=== PATIENT | male | born 1975 | race Caucasian/White ===

== ENCOUNTER 2019-08-25 06:20 | Inpatient (IN) ==
[2019-08-25] MEDS ORDERED: NS 1,000 ML IV ONE (06:25)
[2019-08-25] MEDS ORDERED: XYLOCAINE 2% JELLY UROJECT TOP ONE (06:38)
[2019-08-25 06:41] LABS: BASO# 0.01 X1000 (0.0-0.2); BASO% 0.1 % (0.0-0.8); EOS# 0.02 X1000 (0.0-0.7); EOS% 0.1 % (0.0-10.0); HEMATOCRIT 47.9 % (42.0-52.0); IMM GRAN# 0.04 X1000 (0.0-0.04); IMM GRAN% 0.3 % (0.0-0.5); LYMPH# 0.69 X1000 (1.2-3.4); LYMPH% 4.6 % (20.5-51.1); MCH 30.3 PG (27-31); MCHC 33.4 g/dL (33-37); MCV 90.7 FL (81-99); MONO# 1.29 X1000 (0.11-0.59); MONO% 8.6 % (1.7-9.3); MPV 11.8 FL (7.4-10.4); NEUT# 12.98 X1000 (1.4-6.5); NEUT% 86.3 % (42.2-75.2); PLT 184 X1000 (130-400); RBC 5.28 XMIL (4.7-6.1); RDW 15.3 % (11.5-14.5); WBC 15.03 X1000 (4.8-10.8)
--- NOTE | 2019-08-25 06:42 | PROVIDER DOCUMENTATION ---
HPI-Male Problem - General Chief Complaint: Male Stated Complaint: Abd pain Time Seen by Provider: 08/25/19 07:00 Source: patient (Patient is a 44 year old white male , S/P penile surgery at [facility] 3-4 weeks ago requiring chronic abreu catheter. Patient now presents [facility] with urinary retention and painful lower abdominal distention since last night. Urologist compensation supervisor contacted, Dr. Lopez, who recommends replacing abreu catheter if unable to unblock current abreu catheter. Review of medical record reveals that patient had prolonged priapism for over 3 days that necessitated surgery.) Allergies/Adverse Reactions: Patient Allergies Allergy/AdvReac Type Severity Reaction Status Date / Time No Known Allergies Allergy Verified 08/25/19 06:38 Home Medications: Home Medication List Medication Instructions Recorded Confirmed Last Taken Type Amantadine [Symmetrel] 100 mg PO BID 07/21/19 08/25/19 08/20/19 History Escitalopram [Lexapro] 1 tab PO DAILY 07/21/19 08/25/19 08/20/19 History Lisinopril 1 tab PO DAILY 07/21/19 08/25/19 08/20/19 History Tamsulosin [Flomax] 0.4 mg PO DAILY #7 cap 07/21/19 08/25/19 Unknown Rx Review of Systems - Adult - REVIEW OF SYSTEMS - ADULT Constitutional: reports: no symptoms reported Eyes: reports: no symptoms reported Ears, Nose, Mouth & Throat: reports: no symptoms reported Cardiovascular: reports: no symptoms reported Respiratory: reports: no symptoms reported Gastrointestinal: reports: no symptoms reported Genitourinary: reports: no symptoms reported Musculoskeletal: reports: no symptoms reported Integumentary: reports: no symptoms reported Neurological: reports: no symptoms reported Psychiatric: reports: no symptoms reported Endocrine: reports: no symptoms reported Hematologic/Lymphatic: reports: no symptoms reported Allergic/Immunologic: reports: no symptoms reported All Other Systems: Reviewed and Negative Past History - Adult - PAST MEDICAL HISTORY-ADULT Review of Records: reports: Old Records Reviewed, Nursing Assessment Review, Medications Reviewed, Social history reviewed & non-contributory. Major Childhood Illnesses: reports: denies history Cardiovascular: reports: denies history Respiratory: reports: denies history Gastrointestinal: reports: denies history Obstetrical/Gynecological: reports: denies history Genitourinary: reports: denies history Musculoskeletal: reports: denies history Neurological: reports: denies history Endocrine/Immune: reports: denies history Other Conditions: reports: denies history Physical Exam-General - CONSTITUTIONAL General Appearance: alert, other (in pain) - EYES Eyes: other (clear) - HEAD, EARS, NOSE, MOUTH & THROAT HENMT: other (clear) - NECK Neck: supple - RESPIRATORY Respiratory: lungs clear - CARDIOVASCULAR Cardiovascular: tachycardia (in pain) - GASTROINTESTINAL (ABDOMEN) Abdominal Exam: distended, tenderness (lower abdomen tenderness) - MUSCULOSKELETAL Back Exam: normal inspection, no CVA tenderness Extremity: non-tender Progress - PLAN OF CARE/RESULTS Progress/Plan/Lab Results: Vital Signs - 8 hr 08/25/19 06:15 Temperature 98.8 F Pulse Rate 116 H Respiratory Rate 18 Blood Pressure 131/96 O2 Sat by Pulse Oximetry 98 Laboratory Results - last 24 hr 08/25/19 06:23 WBC 15.03 H RBC 5.28 Hgb 16.0 Hct 47.9 MCV 90.7 MCH 30.3 MCHC 33.4 RDW Std Deviation 15.3 H Plt Count 184 MPV 11.8 H Immature Gran % (Auto) 0.3 Neut % (Auto) 86.3 H Lymph % (Auto) 4.6 L Creek % (Auto) 8.6 Eos % (Auto) 0.1 Baso % (Auto) 0.1 Immature Gran # (Auto) 0.04 Neut # (Auto) 12.98 H Lymph # (Auto) 0.69 L Creek # (Auto) 1.29 H Eos # (Auto) 0.02 Baso # (Auto) 0.01 Orders Category Date Time Status [facility] Communication Order DIRECTED Care 08/25/19 06:22 Active NEWS Score 2-4:Order NEWS Lactate Series NOW Care 08/25/19 06:25 Active Saline Loc DIRECTED Care 08/25/19 06:23 Active NPO Diet 08/25/19 06:23 Active BLOOD CULTURE [BLDCUL] Stat Lab 08/25/19 06:39 Ordered CBC WITH ELECTRONIC DIFF [HEME] Stat Lab 08/25/19 06:23 Results COMPREHENSIVE METABOLIC PANEL [CHEM] Stat Lab 08/25/19 06:33 Ordered LACTATE, PLASMA [CHEM] Q3H Lab 08/25/19 06:33 Ordered LACTATE, PLASMA [CHEM] Q3H Lab 08/25/19 09:30 Uncollected LACTATE, PLASMA [CHEM] Q3H Lab 08/25/19 12:30 Uncollected LIPASE [CHEM] Stat Lab 08/25/19 06:33 Ordered URINALYSIS W/POSS RFLX CULT [URINALYSIS] Stat Lab 08/25/19 06:23 Uncollected 0.9% Sodium Chloride Inj [Ns] 1,000 ml Med 08/25/19 06:25 Active IV 999 mls/hr Lidocaine 2% Jelly Appl [Xylocaine 2% Jelly Uroject] Med 08/25/19 06:38 Once See Dose Instructions TOP NOW ONE Result Diagrams: 08/25/19 06:23 08/25/19 06:25 - CONSULTS/PCP/HOSPITALIST Notification #1 *Consult/PCP/Hospitalist*: Dr. Lopez, urologist compensation supervisor Time Discussed: 06:30 #2 Consult: DR LOPEZ Time Discussed: 08:00 (will need admission , can consult) #3 Consult: dr DIXON Time Discussed: 09:11 Consult Disposition: Admit - CHANGE OF SHIFT REPORT (ED Provider) 1 Report Given and Care Transferred to:: Dr. Mike Vance Time of Transfer: 07:00 Items Pending: Labs Departure - Departure Date of Disposition Decision: 08/25/19 Time of Disposition Decision: 09:09 DIAGNOSIS: Acute urinary retention, UTI (urinary tract infection), Pyuria, Multiple sclerosis Abreu catheter problem Qualifiers: Encounter type: initial encounter Qualified Code(s): T83.9XXA - Unspecified complication of genitourinary prosthetic device, implant and graft, initial encounter Disposition: ADMITTED INPATIENT 09 Certified Medical Emergency: Emergent Condition: Stable - Critical Care Note This patient required my direct & personal management of CC.: No Attestation - Physician/ [place] Attestation The physician spent face to face time with patient:: Yes Advanced Practice Provider documentation review:: Supervising physician onsite and consulted in the evaluation and care of this patient. The physician did have a face to face encounter with the patient.
[2019-08-25 07:14] LABS: URINE SOURCE CATH
[2019-08-25 07:30] LABS: URINE RBC TNTC /HPF (<10)
[2019-08-25 07:31] LABS: URINE CAST NONE SEEN /LPF; URINE CRYSTAL TRIPLE PHOS PRESENT /HPF; URINE EPITHELIAL CELLS <10 /HPF (<10); URINE YEAST NONE SEEN /HPF
[2019-08-25 07:33] LABS: BILIRUBIN URINE NEGATIVE (NEGATIVE); BLOOD URINE LARGE (NEGATIVE); COLOR RED; GLUCOSE URINE NEGATIVE (NEGATIVE); KETONE URINE NEGATIVE (NEGATIVE); SP GRAVITY URINE 1.015; URINE SMALL ROUND CELLS TRANSITIONAL PRESENT
[2019-08-25 07:34] LABS: LEUKOCYTES URINE LARGE (NEGATIVE); NITRITE URINE NEGATIVE (NEGATIVE); PROTEIN URINE 100 mg/dL (NEGATIVE); UROBILINOGEN URINE 0.2 EU/dL (0.2-1.0)
[2019-08-25 07:35] LABS: URINE BACTERIA 4+ /HFP
[2019-08-25 07:36] LABS: CLARITY GROSS BLOOD (CLEAR); URINE WBC TNTC /HPF (<10)
[2019-08-25 07:47] LABS: ALBUMIN 3.6 g/dL (3.5-5.0); CALCIUM 9.3 mg/dL (8.8-10.2); CREATININE 6.5 mg/dL (0.7-1.2); POTASSIUM 4.2 mmol/L (3.5-5.1); TOTAL BILIRUBIN 0.9 mg/dL (0.20-1.00); TOTAL PROTEIN 7.1 g/dL (6.3-8.3)
[2019-08-25] MEDS ORDERED: ROCEPHIN 1 GM in NS 50 ML IV ONE (08:04)
--- NOTE | 2019-08-25 08:58 | HISTORY AND PHYSICAL ---
PRIMARY CARE PHYSICIAN: None. NEUROLOGIST: Dr. Dye. CHIEF COMPLAINT: Urinary retention and lower abdominal painful distention with indwelling Ramsay catheter. HISTORY OF PRESENTING ILLNESS: This is a 44-year-old, male, who presents to [facility] ER with complaints of urinary retention and a painful lower abdomen distention over the past several days. States that he is status post penile surgery at [facility] about 3 to 4 weeks ago, requiring a chronic Ramsay catheter. He has had [id number] urinary output in his urinary catheter. ER physician spoke with Dr. Lopez, on-call for Urology, who recommended replacing the Ramsay catheter. The staff was able to replace that, and he had immediate return of pardo-colored urine. Workup did show a white blood cell count of 15.03. Urinalysis showed large white blood cells, 4+ bacteria. He also was noted to have a BUN of 66, with a creatinine of 6.5. It is noted on 07/29/2019 that his creatinine was 0.7, so he will be admitted to [facility] for further evaluation and treatment. PAST MEDICAL HISTORY: Multiple sclerosis. PAST SURGICAL HISTORY: Penile surgery for prolonged priapism. FAMILY HISTORY: Reviewed and noncontributory. SOCIAL HISTORY: He currently does not smoke. No alcohol or illicit drug use. ALLERGIES: He has no known drug allergies. HOME MEDICATIONS: Will obtain a current list, reconcile, review, and restart as appropriate. LABORATORY DATA: White blood cell count of 15.03, hemoglobin 16, hematocrit 47.9, platelets 184,000. Sodium 140, potassium 4.2, chloride 100, CO2 of 20, BUN of 66, creatinine 6.5, glucose 125. Plasma lactate of 1.7. Urinalysis showed gross blood, large white blood cells, 4+ bacteria. REVIEW OF SYSTEMS: He denied any fever, chills, blurred vision, dizziness, chest pain, coughing, shortness of breath. He had lower abdominal distention with pain and urinary retention with minimal output into his indwelling Ramsay catheter. Denied any nausea, vomiting, constipation, diarrhea. PHYSICAL EXAMINATION: VITAL SIGNS: On arrival, he had a temperature of 98.8 degrees, pulse 116, respirations 18, blood pressure 131/96, saturating 98% on room air. GENERAL: This is a 44-year-old, male, lying in the bed, answers questions appropriately. HEENT: Normocephalic, atraumatic. Normal ENT inspection. Oropharynx and nares are clear. Eyes: Pupils are equal, round, and reactive to light and accommodation. Extraocular movements are intact. NECK: Normal inspection. Normal range of motion. LUNGS: Clear to auscultation bilaterally with equal lung expansion and chest wall movement. HEART: Regular rate and rhythm. No murmurs, rubs, or gallops. ABDOMEN: Soft. There is some tenderness to the suprapubic area of his abdomen, but that has improved since changing out his Ramsay catheter. Bowel sounds are present x4 quadrants. GENITOURINARY: He has an indwelling Ramsay catheter, draining a pardo-colored urine at this time. MUSCULOSKELETAL: Normal inspection. NEUROLOGICAL: The cranial nerves II through XII appear grossly intact. ASSESSMENT: 1. Postobstructive uropathy with indwelling Ramsay catheter. 2. Acute kidney injury. 3. Urinary tract infection. 4. Leukocytosis. 5. Multiple sclerosis. PLAN: He will be transferred to the [facility]. Consult Urology. Place on a regular diet. Rocephin 1 gram IV every 24 hours. Normal saline at 125 mL an hour. Urine culture is pending. Blood culture is pending. Will continue his home medications once identified as appropriate, and further orders after seen by attending and by technical assistance consultant. Dictated by DANIELLE Sy for Neri Gonzalez MD cc: DANIELLE Sy MD
--- NOTE | 2019-08-25 10:10 | HISTORY AND PHYSICAL ---
ADDENDUM: Patient was seen and examined by myself. Full note dictated and discussed with nurse practitioner. Patient is a 44-year-old male who has a known history of multiple sclerosis. He just recently had surgery at [facility] 3 to 4 days ago secondary to chronic Ramsay catheter. He presented to the hospital with leukocytosis at 15. Urine is abnormal but certainly may be a contaminant. We are going to start him on antibiotics and transfer him to [facility] for urology input. cc: Neri Gonzalez MD
[2019-08-25] MEDS: SYMMETREL PO SCH ×2 (10:14→21:53)
[2019-08-25] MEDS ORDERED: ZOFRAN IV PRN (10:14)
[2019-08-25] MEDS ORDERED: TYLENOL PO PRN (10:14)
[2019-08-25] MEDS: NS 1,000 ML IV SCH ×2 (10:53→21:40)
[2019-08-25] MEDS: LEXAPRO PO SCH (10:53)
[2019-08-25] MEDS: FLOMAX PO SCH (10:53)
--- NOTE | 2019-08-25 12:48 | HISTORY AND PHYSICAL ---
ADDENDUM: Patient was seen and examined by myself. Full note dictated and discussed with nurse practitioner. The patient currently is awake and alert. He is in no respiratory distress but obviously ill-appearing. I am going to admit him to the hospital. He has had his Ramsay replaced. I am transferring him to [facility] for urology's input and we will follow. Please see full note. cc: Neri Gonzalez MD
--- NOTE | 2019-08-25 16:24 | Diag Imaging Result Doc PS360 ---
EXAM: US RENAL 2 (RETROPER) COMPLETE - 08/25/2019 HISTORY: jean pierre/arf/urinary retention TECHNIQUE: Bilateral renal ultrasound COMPARISON: None. FINDINGS: The right kidney measures 12.6 x 4.8 x 5.5 cm in size. The left kidney measures 12 x 5.4 x 6.2 cm in size. There is no renal mass, stone, or hydronephrosis. The urinary bladder is largely decompressed by Ramsay catheter. There is no discrete urinary bladder lesion identified. IMPRESSION: No visible renal abnormality. No hydronephrosis. Electronically signed by Celestino Lunsford 08/25/2019 4:22 PM
[2019-08-25] MEDS: KLONOPIN PO SCH (16:34)
[2019-08-25] MEDS: NORCO-10 PO PRN (16:34)
--- NOTE | 2019-08-25 17:09 | PROGRESS NOTE ---
DATE: 08/25/2019 44-year-old followed by Dr. Dye. Urinary retention, lower abdominal pain, full distention, indwelling Ramsay catheter. A 44-year-old male came to [facility] complain of urinary retention, painful lower abdomen distention over the last several days and he is status post penile surgery in [place] 3 or 4 weeks ago requiring chronic Ramsay catheter. He had little to no urinary output. ER physician spoke to Dr. Lopez guidance consultant for Urology recommended replacing Ramsay catheter and staff was able to replace that and he had immediate return of pardo colored urine. Workup showed white blood cell count of 15,030, urinalysis showed white blood cells, large number white blood cells, 4+ bacteria. Also noted to have a BUN of 66, creatinine 6.5 noted on 08/18/2019, creatinine 0.7 so admitted to the hospital, started on some IV fluids. Acute kidney injury, urinary tract infection, post obstructive uropathy with indwelling Ramsay catheter, leukocytosis, underlying multiple sclerosis. Have reviewed the orders. Patient on amantadine 100 mg p.o. b.i.d., Klonopin 0.5 mg t.i.d., Lexapro 10 mg daily, normal saline at 125 mL an hour, ceftriaxone 1 g IV q.24 hours, Flomax 0.4 mg a day. REVIEW OF LABS: White count 15,030, hematocrit is 47, platelet count 184,000. Sodium 140, potassium 4.2, chloride 100, BUN 66, creatinine 6.5, calcium 9.3. cc: Mehul Stahl MD
[2019-08-26] MEDS: NS 1,000 ML IV SCH ×3 (06:16→20:04)
[2019-08-26 07:11] LABS: AGAP 10; BUN 21 mg/dL (8-22); CALCIUM 8.5 mg/dL (8.8-10.2); CHLORIDE 111 mmol/L (98-107); COSMO 291; ESTIMATED GFR > 60; GLUCOSE 94 mg/dL (70-104); POTASSIUM 3.9 mmol/L (3.5-5.1); SODIUM 145 mmol/L (136-145); TCO2 24 mmol/L (25-35)
[2019-08-26 07:37] LABS: BASO# 0.01 X1000 (0.0-0.2); BASO% 0.2 % (0.0-0.8); EOS# 0.18 X1000 (0.0-0.7); EOS% 3.2 % (0.0-10.0); HEMATOCRIT 40.3 % (42.0-52.0); HEMOGLOBIN 13.1 g/dL (14.0-18.0); LYMPH# 0.64 X1000 (1.2-3.4); LYMPH% 11.4 % (20.5-51.1); MCH 30.5 PG (27-31); MCHC 32.5 g/dL (33-37); MCV 93.9 FL (81-99); MONO# 0.57 X1000 (0.11-0.59); MONO% 10.1 % (1.7-9.3); MPV 11.6 FL (7.4-10.4); NEUT# 4.22 X1000 (1.4-6.5); NEUT% 75.1 % (42.2-75.2); PLT 158 X1000 (130-400); RBC 4.29 XMIL (4.7-6.1); RDW 15.1 % (11.5-14.5); WBC 5.62 X1000 (4.8-10.8)
[2019-08-26 07:41] LABS: URINE SOURCE CATH
--- NOTE | 2019-08-26 08:04 | CONSULTATION ---
DATE OF CONSULTATION: 08/26/2019 CHIEF COMPLAINT: Urinary retention and nonfunctional Ramsay catheter. HISTORY OF PRESENT ILLNESS: Mr. Prajapati is a 44-year-old who presented to the emergency room yesterday complaining of urinary retention and painful suprapubic distention. The patient has had an indwelling catheter in for over a month now due to retention. The patient has been to the emergency room on 4 separate occasions regarding his catheter, most recently on 08/21/2019. The patient states that he initially had a catheter placed in June and then re- presented when he had a priapism for 7 days. Due to issues with the hospital being on diversion, he was transferred to [place] and underwent drainage of priapism in [place]. The patient does not remember the doctor's name. The patient continues to have indwelling catheter in since then. The patient's catheter was clogged, and he presented to the emergency room yesterday. The ER tried to flush his catheter and were unsuccessful and removed the catheter and reinserted with a new catheter, which drained out over 1500 mL of slightly bloody and thickened urine that had 4+ bacteria present. The patient had a white blood cell count elevated at 15, with a creatinine of 6.5. The patient was admitted to the hospital, as his previous creatinines were around 0.7. This morning, patient denies any dysuria or pelvic pain. He feels like the catheter is draining well and feels like he is back to his normal state of health. PAST MEDICAL HISTORY: 1. Multiple sclerosis. 2. Hypertension. PAST SURGICAL HISTORY: Penile surgery for prolonged priapism. ALLERGIES: No known drug allergies. HOME MEDICATIONS: 1. Amantadine 100 mg b.i.d. 2. Klonopin 0.5 mg t.i.d. 3. Lexapro 1 tablet p.o. daily. 4. Brayton 10/325 mg take 1 tablet every 6 hours. 5. Lisinopril 1 tablet p.o. daily. 6. Flomax 0.4 mg p.o. FAMILY HISTORY: Denies family history of malignancy. SOCIAL HISTORY: Denies tobacco, alcohol, illicit drug use. REVIEW OF SYSTEMS: A 12-point review of systems was performed with all pertinent positives and negatives in HPI. PHYSICAL EXAMINATION: Vital Signs: Temperature 98.5 degrees, heart rate 99, blood pressure 132/82, oxygen saturation 100% on room air. General: No acute distress. Resting comfortably in bed. Alert and oriented x3. HEENT: Normocephalic, atraumatic. Pupils equal, round, reactive to light. Slightly poor dentition. Neck: Trachea midline with no obvious masses. Lungs: Clear to auscultation bilaterally. Respiratory: Good respiratory effort without audible wheezing or rales. Cardiovascular: Regular rate and rhythm. Abdomen: Soft, nontender, nondistended. Genitourinary: No suprapubic tenderness. No CVA tenderness. Urethral catheter in place draining slightly pinkish urine. No evidence of any clots or sediment. The patient has normal phallus with orthotopic meatus. The patient has chromic sutures present within the glans at the site of prior shunt with no blood present. Bilateral testicles palpated without asymmetry. Digital rectal exam showed a 25 gram prostate with no nodules or bogginess. Musculoskeletal: Moving all extremities. Neurologic: Gross motor and sensory intact. Skin: No obvious skin lesions or rashes. LABORATORY DATA: The patient's blood work yesterday showed a white blood cell count of 15, hemoglobin 16, hematocrit 47.9, platelets of 184,000. The a.m. CBC is not returned. The patient's sodium today is 145, potassium 3.9, chloride 111, bicarbonate 24, BUN 21, creatinine 1, glucose 94. The patient's creatinine yesterday was 6.5 with a BUN of 66. IMAGING: Renal ultrasound was obtained yesterday which showed no evidence of hydronephrosis, renal mass, nephrolithiasis, or renal cyst. The patient had decompressed bladder with catheter in place with no obvious etiologies within the bladder itself. ASSESSMENT AND PLAN: Mr. Prajapati is a 44-year-old who presents in consultation regarding urinary retention and recent episode of priapism. The patient had his indwelling catheter clogged yesterday and presents to the emergency room. This was exchanged and has drained well since then. He does have some reddish urinary output. The patient 4+ bacteria on his urinalysis. The patient had acute kidney injury yesterday with creatinine 6.5. This improved remarkably to 1 today. He denies any pain. The patient had a recent episode of priapism which was drained at [place]. The patient has failed several voiding trials and presents today with indwelling catheter. Renal ultrasound yesterday showed no evidence of hydronephrosis or renal mass. I recommended consideration for cystoscopy in the future, probably could do this outpatient, to assess for obstruction as well as issues with recurrent retention. I think this may be related to his multiple sclerosis. No obvious enlargement of the prostate is seen on the digital rectal exam. The patient remains on Flomax. We will continue at this time. I would plan to try to perform a voiding trial in the outpatient setting, likely at time of cystoscopy. Would arrange this outpatient. The patient's renal function seems to have improved significantly, could consider discharge depending on culture results. The patient likely had a bacterial infection leading to elevated white blood cell count. The morning's white blood cell numbers have not returned yet. We will continue to monitor from a urologic standpoint. Please call with questions or concerns. cc: Nakul Lopez MD MTDD
[2019-08-26 08:23] LABS: BILIRUBIN URINE NEGATIVE (NEGATIVE); BLOOD URINE LARGE (NEGATIVE); COLOR BROWN; GLUCOSE URINE NEGATIVE (NEGATIVE); KETONE URINE TRACE mg/dL (NEGATIVE); LEUKOCYTES URINE LARGE (NEGATIVE); NITRITE URINE NEGATIVE (NEGATIVE); PROTEIN URINE 100 mg/dL (NEGATIVE); SP GRAVITY URINE 1.015; TURBIDITY URINE TURBID (CLEAR); UROBILINOGEN URINE NORMAL (NORMAL)
[2019-08-26 08:29] LABS: UR EPITHELIAL CELLS <10 /HPF (<10); URINE BACTERIA NEGATIVE /HPF; URINE RBC TNTC /HPF (<10); URINE WBC TNTC /HPF (<10)
[2019-08-26 08:31] LABS: URINE CASTS NONE SEEN; URINE CRYSTALS NONE SEEN; URINE SMALL ROUND CELLS NONE SEEN; URINE YEAST NONE SEEN
[2019-08-26] MEDS: ROCEPHIN 1 GM in NS 50 ML IV SCH (08:39)
[2019-08-26] MEDS: SYMMETREL PO SCH ×2 (08:39→20:00)
[2019-08-26] MEDS: LEXAPRO PO SCH (08:39)
[2019-08-26] MEDS: FLOMAX PO SCH (08:39)
[2019-08-26] MEDS: KLONOPIN PO SCH ×3 (08:46→17:41)
--- NOTE | 2019-08-26 10:14 | PROGRESS NOTE ---
DATE: 08/26/2019 Mr. Prajapati was admitted yesterday, on 08/25/2019. He had a Ramsay replaced. Transferred him to [place] for [facility]. He came with urinary retention, lower abdominal painful distention, indwelling Ramsay catheter. He is a 44-year-old, male. Presented to [facility] with complaints of urinary retention, painful lower abdominal distention over the past several days. States that he is status post penile surgery at [facility] 3 or 4 weeks ago, requiring a chronic Ramsay catheter. He has had little to no urinary output from his urinary catheter. ER physician spoke with Dr. Lopez in a call and recommended to come over here. They were able to replace his catheter and he had immediate return of pardo-colored urine. Workup showed white blood cell count at 15,030, large number of white blood cells in the urine, 4+ bacteria. BUN of 66, creatinine 6.5. It was noted that on 07/29/2019, his creatinine was 0.7. He has underlying multiple sclerosis. He reports that he feels about the same today. PHYSICAL EXAMINATION: Temperature 98.1 degrees, pulse 92, respirations 19, blood pressure 105/59. Pupils are equal and round. Lungs are clear in all lung hamm. Cardiovascular Examination: Regular rhythm and rate without murmur or S3. Urine output is 5000 mL. ASSESSMENT AND PLAN: Presented with urinary retention, recent episode of priapism. The patient has had indwelling catheter clogged and presented to the emergency room. This catheter was changed and has drained well since then. Does have some reddish urinary output. The patient is with 4+ bacteria on urinalysis. The patient had an acute kidney injury. The creatinine was up to 6.5, and removed and improved remarkably in 1 day. He denies any pain. Recent episode of priapism that was drained in [place]. The patient failed several voiding trials and has an indwelling catheter. Renal ultrasound showed no evidence of hydronephrosis or renal mass. I think Dr. Lopez is considering a cystoscopy in the future, which could possibly be done as an outpatient. He has urinary retention, which could be related to his multiple sclerosis. No obvious enlargement of the prostate seen on digital exam. The patient remains on Flomax. Could plan to try a voiding trial. Plan a voiding trial as an outpatient setting, likely at the time of cystoscopy. Arrange this as an outpatient. We will begin some physical therapy. REVIEW OF ORDERS: He is on Symmetrel 100 mg p.o. b.i.d., Klonopin 0.5 mg t.i.d., Lexapro 10 mg a day, getting normal saline at 125 mL an hour, ceftriaxone 1 g IV q.24 hours, Flomax 0.4 mg daily. We are waiting on cultures. He had blood cultures and urine culture, which were done yesterday. We will get physical therapy involved and see. He is on a regular diet. cc: Mehul Stahl MD
[2019-08-26] MEDS: LACTULOSE PO SCH ×2 (12:57→20:01)
[2019-08-26] MEDS: MIRALAX PO SCH ×2 (12:57→20:01)
[2019-08-27] MEDS: NS 1,000 ML IV SCH ×3 (06:59→22:21)
--- NOTE | 2019-08-27 07:24 | PROGRESS NOTE ---
DATE: 08/27/2019 SUBJECTIVE: No acute events overnight. The patient's catheter is draining well with 2000cc of clear yellow urine draining. He denies any flank or abdominal pain today. Denies any fevers or chills. OBJECTIVE: Vital signs: Temperature 98.2 degrees, heart rate 87, blood pressure 141/88, oxygen saturation 97% on room air. General: No acute distress. Resting comfortably in bed. Alert and oriented x3. Respiratory: Good respiratory effort without audible wheezing or rales. Abdomen: Soft, nontender, nondistended. Genitourinary: No suprapubic tenderness. No CVA tenderness. Urethral catheter in place draining clear yellow urine. Chromic sutures are present in the glans at prior distal penile shunt location. LABORATORY DATA: White blood cell count yesterday was 5.62, hemoglobin 13.1, hematocrit 40.3, platelets 158,000. Sodium 145, potassium 3.9, chloride 111, bicarb 24, BUN 21, creatinine 1.0, glucose 94. The patient's urine culture is still in the lab. Blood cultures have shown no growth at 48 hours. ASSESSMENT AND PLAN: Mr. Prajapati is a 44-year-old with hypertension, multiple sclerosis and recent episode of priapism. The patient had drainage of his priapism in [place]. The patient has had indwelling catheter in due to urinary retention for the past month. He has not had his catheter removed since then per his report. I recommended trying to remove his catheter today for attempted voiding trial. We will obtain PVRs post urination to ensure adequate emptying. If the patient is unable to empty, we will reinsert catheter and follow up in the outpatient setting with cystoscopy. We will continue to follow the patient while he is inpatient. If the patient is able to void, potentially could be discharged later today without a catheter. If the patient has retention, would place an indwelling catheter and likely discharge home to follow up in the outpatient setting. Followup urine and blood cultures, blood cultures have been negative to date, urine culture has not returned yet. Would continue with culture-specific antibiotics. cc: MD ANT Silva
[2019-08-27] MEDS: LACTULOSE PO SCH ×2 (09:11→22:21)
[2019-08-27] MEDS: MIRALAX PO SCH ×2 (09:12→22:22)
[2019-08-27] MEDS: SYMMETREL PO SCH ×2 (09:13→22:20)
[2019-08-27] MEDS: LEXAPRO PO SCH (09:13)
[2019-08-27] MEDS: FLOMAX PO SCH (09:13)
[2019-08-27] MEDS: ROCEPHIN 1 GM in NS 50 ML IV SCH (09:14)
[2019-08-27] MEDS: KLONOPIN PO SCH ×4 (09:15→22:20)
[2019-08-27] MEDS: ZYVOX 600 MG/D5W 600 MG/300 ML IVPB IV SCH ×2 (12:52→22:21)
--- NOTE | 2019-08-27 17:07 | PROGRESS NOTE ---
DATE: 08/27/2019 SUBJECTIVE: The patient seems to be resting in bed. We did the a voiding trial and he failed and a Ramsay catheter is going to be placed back in. We have a positive urine culture that showed gram- positive cocci. I put him on treatment with Zyvox. He is not having fever. Vital signs are stable, but he has a history of multiple sclerosis and a recent drainage of his of a priapism in [place]. So, for this reason, I will go ahead and put him on treatment and wait for the final sensitivity. OBJECTIVE: Vital Signs: Temperature 98.2 degrees, pulse 89, respiratory rate 20, blood pressure 142/94, oxygen saturation 100% on room air. HEENT: Head normocephalic no trauma PERRLA. Neck: Supple. No JVD. No masses. Central trachea. Chest: Clear to auscultation. No wheezing. No rales. Abdomen: Soft, nontender, nondistended. No hepatosplenomegaly. Extremities: No edema. Neurological: The patient is awake. He is answering my questions slowly. LABORATORY: WBC 5.6, hemoglobin 13.1, hematocrit 40.3, platelets 158,000. Sodium 145, potassium 3.9, chloride 111, bicarbonate 24, BUN 21, creatinine 1, glucose 94, calcium 8.5. ASSESSMENT AND PLAN: 1. Urinary retention in a patient with an indwelling catheter from previous drainage of his priapism in [place]. Apparently he has been having this catheter for a month. We tried to remove it and see if he was able to void by himself but he failed, so a Ramsay catheter is going to be placed back again, and follow up with urology as an outpatient. The problem is that he has a positive urine culture that showed a gram-positive cocci and since he had this indwelling catheter and also a procedure done on top of that he has a history of multiple sclerosis, so I am not quite sure if this patient can feel any kind of burning sensation and pain in the urinary tract, so I will go ahead and treat it and wait for the sensitivity. 2. Positive urine culture that showed gram-positive cocci as above. 3. History of recent priapism status post drainage in [place], aware. 4. Hypertension continue same management. 5. History of multiple sclerosis aware. 6. Acute kidney injury, resolved. cc: Jorge Polk MD
[2019-08-28] MEDS: ZYVOX 600 MG/D5W 600 MG/300 ML IVPB IV SCH ×2 (02:03→11:43)
[2019-08-28] MEDS ORDERED: KLONOPIN PO PRN (02:05)
[2019-08-28] MEDS: NORCO-10 PO PRN (02:26)
[2019-08-28] MEDS: NS 1,000 ML IV SCH ×4 (03:50→18:06)
[2019-08-28 07:07] LABS: BASO# 0.01 X1000 (0.0-0.2); BASO% 0.3 % (0.0-0.8); EOS% 5.9 % (0.0-10.0); HEMATOCRIT 33.5 % (42.0-52.0); IMM GRAN# 0.02 X1000 (0.0-0.04); IMM GRAN% 0.6 % (0.0-0.5); LYMPH# 0.65 X1000 (1.2-3.4); LYMPH% 19.2 % (20.5-51.1); MCHC 32.8 g/dL (33-37); MCV 91.3 FL (81-99); MONO# 0.45 X1000 (0.11-0.59); MONO% 13.3 % (1.7-9.3); MPV 10.7 FL (7.4-10.4); NEUT# 2.06 X1000 (1.4-6.5); NEUT% 60.7 % (42.2-75.2); PLT 171 X1000 (130-400); RBC 3.67 XMIL (4.7-6.1); RDW 13.8 % (11.5-14.5); WBC 3.39 X1000 (4.8-10.8)
[2019-08-28 07:10] LABS: AGAP 12; BUN 9 mg/dL (8-22); CALCIUM 8.1 mg/dL (8.8-10.2); CHLORIDE 108 mmol/L (98-107); COSMO 287; CREATININE 0.7 mg/dL (0.7-1.2); ESTIMATED GFR > 60; GLUCOSE 96 mg/dL (70-104); SODIUM 145 mmol/L (136-145); TCO2 25 mmol/L (25-35)
[2019-08-28] MEDS: LACTULOSE PO SCH ×2 (08:33→21:03)
[2019-08-28] MEDS: MIRALAX PO SCH ×2 (08:33→21:03)
[2019-08-28] MEDS: ROCEPHIN 1 GM in NS 50 ML IV SCH (08:35)
[2019-08-28] MEDS: FLOMAX PO SCH (08:35)
[2019-08-28] MEDS: SYMMETREL PO SCH ×2 (08:35→21:04)
--- NOTE | 2019-08-28 08:54 | PROGRESS NOTE ---
DATE: 08/28/2019 SUBJECTIVE: No acute events overnight. The patient had his catheter removed yesterday and was unable to void. The patient had 400mL in his bladder after voiding only 25 mL. The patient states he had some bloody urine afterwards. Urine is clear yellow today with over 3 L recorded from his catheter OBJECTIVE: Vital Signs: Temperature 98.3 degrees, heart rate 84, blood pressure 146/95, oxygenation saturation 98% on room air. General: No acute distress. Resting comfortably in bed. Alert and oriented x3. Respiratory: Good respiratory effort without audible wheezing or rales. Abdomen: Soft, nontender, nondistended. Genitourinary: No suprapubic tenderness. No CVA tenderness. Urethral catheter in place draining clear yellow urine. No evidence of any clots. LABORATORY: White blood cell count 3.4, hemoglobin 11, hematocrit 33.5. Sodium 145, potassium 3, chloride 108, bicarbonate 25, creatinine 0.7, glucose 96. MICROBIOLOGY: Initial urine culture from 08/25/2019 growing gram-positive cocci 100,000. ASSESSMENT AND PLAN: Mr. Prajapati is a 44-year-old with history of hypertension, multiple sclerosis, and recent episode of priapism, who presented in consultation regarding urinary retention and WINNIE. The patient had a renal ultrasound, which showed no evidence of hydronephrosis, renal mass, or nephrolithiasis. The patient states he has noticed some blood in his urine, which was initially seen on placement of his catheter. Urine currently is clear yellow. I talked with him. I recommended cystoscopy with bilateral retrograde pyelograms. The patient would like to do this during his hospitalization. I think this is reasonable due to recurrent episodes of urinary retention and episode of hematuria. I would plan to perform this tomorrow in the operating room with cystoscopy and bilateral retrograde pyelogram. Discussed the procedure at length including risk of bleeding, infection, damage to surrounding structures, and need for secondary procedures. After thorough discussion, he elected to proceed. We will make him nothing by mouth at midnight. We will perform consent regarding his procedure. Continue to follow up urine culture, which is growing gram-positive cocci, could be contaminant due to indwelling catheter. Most recent urine culture without growth. Blood cultures are negative as well. The patient's renal function has returned to a normal level. Overall, patient seems to be doing well. We will plan for discharge after his procedure as long as no significant pathology is found on evaluation. cc: Nakul Lopez MD MTDD
[2019-08-28] MEDS: PRINIVIL PO SCH (11:43)
--- NOTE | 2019-08-28 14:24 | PROGRESS NOTE ---
DATE: 08/28/2019 SUBJECTIVE: The patient seems to be resting in bed. A Ramsay catheter has been placed yesterday. We have a culture that showed gram-positive cocci. He has been evaluated by Urology department. He will have a procedure done tomorrow by the Urology department. OBJECTIVE: Vital Signs: Temperature 98 degrees, pulse 98, respiratory rate 18, blood pressure 135/84, oxygen saturation 99% on room air. HEENT: Head normocephalic. No trauma. PERRLA. Neck: Supple. No JVD. No masses. Central trachea. Chest: Clear to auscultation. No wheezing. No rales. Abdomen: Soft, nontender, nondistended, no hepatosplenomegaly. Extremities: No edema. Neuro: Neurological examination the patient is awake. He is answering my questions slowly. LABORATORY: WBC 3.3, hemoglobin 11, hematocrit 33.5, platelets 171,000, sodium 145, potassium 3, chloride 108, bicarbonate 25, BUN 9, creatinine 0.7, glucose 96 calcium 8.1. ASSESSMENT AND PLAN: 1. Urinary retention in a patient with an indwelling catheter. He had a previous drainage from his prior priapism in [place] and apparently he has been having this catheter for a month. He tried to remove it, and he was not able to void by himself. The catheter has been placed back in. He looks like he has some problems with kidney stones, so he will have a procedure done tomorrow. He had a urine culture that showed gram-positive cocci and pending sensitivity, but likely this is a contamination. 2. Positive urine culture that showed gram-positive cocci, as above. New culture is negative, but I will wait for the final sensitivity. 3. History of recent priapism status post drainage in [place], aware. 4. Hypertension. Continue same management. 5. History of multiple sclerosis, aware. 6. Acute kidney injury, resolved. cc: Jorge Polk MD
[2019-08-29] MEDS: ZYVOX 600 MG/D5W 600 MG/300 ML IVPB IV SCH ×2 (00:05→12:49)
--- NOTE | 2019-08-29 07:05 | PROGRESS NOTE ---
DATE: 08/29/2019 SUBJECTIVE: No acute events overnight. Patient denies significant pain. He was made n.p.o. in preparation for surgery today. Overall, he feels like he is doing well. His catheter is draining clear yellow urine with over 4.5 L recorded yesterday. PHYSICAL EXAMINATION: Vital Signs: Temperature 97.9 degrees, heart rate 104, blood pressure 139/83, oxygen saturation 98% on room air. General: No acute distress. Resting comfortably in bed. Alert and oriented x3. Respiratory: Good respiratory effort without audible wheezing or rales. Abdomen: Soft, nontender, nondistended. : No suprapubic tenderness. No CVA tenderness. Urethral catheter in place, draining clear yellow urine. Microbiology is growing Micrococcus luteus. Awaiting finalization of sensitivities. ASSESMENT AND PLAN: Overall, patient seems to be doing better. The patient was made nothing per oral in preparation for surgery today. We will plan to take him to the operating for cystoscopy, bilateral retrograde pyelograms, and assessment of continued urinary retention and hematuria. The patient had a renal ultrasound which showed no evidence of hydronephrosis or obstruction. Overall, the patient seems to be doing adequate at this time. We will assess postoperatively. If he does well, likely can be discharged home after surgery. cc: MD ANT Silva
[2019-08-29 07:10] LABS: BASO# 0.02 X1000 (0.0-0.2); BASO% 0.6 % (0.0-0.8); EOS# 0.21 X1000 (0.0-0.7); HEMATOCRIT 34.9 % (42.0-52.0); HEMOGLOBIN 11.6 g/dL (14.0-18.0); IMM GRAN# 0.03 X1000 (0.0-0.04); IMM GRAN% 0.9 % (0.0-0.5); LYMPH# 0.67 X1000 (1.2-3.4); MCHC 33.2 g/dL (33-37); MCV 90.2 FL (81-99); MONO# 0.36 X1000 (0.11-0.59); MONO% 10.2 % (1.7-9.3); MPV 10.4 FL (7.4-10.4); NEUT# 2.23 X1000 (1.4-6.5); NEUT% 63.3 % (42.2-75.2); PLT 178 X1000 (130-400); RBC 3.87 XMIL (4.7-6.1); RDW 13.5 % (11.5-14.5); WBC 3.52 X1000 (4.8-10.8)
[2019-08-29] MEDS: NS 1,000 ML IV SCH ×2 (07:19→08:07)
[2019-08-29 07:39] LABS: AGAP 12; BUN 5 mg/dL (8-22); CALCIUM 8.1 mg/dL (8.8-10.2); CHLORIDE 105 mmol/L (98-107); COSMO 278; CREATININE 0.6 mg/dL (0.7-1.2); ESTIMATED GFR > 60; GLUCOSE 94 mg/dL (70-104); POTASSIUM 2.9 mmol/L (3.5-5.1); SODIUM 141 mmol/L (136-145); TCO2 24 mmol/L (25-35)
[2019-08-29] MEDS: ROCEPHIN 1 GM in NS 50 ML IV SCH (07:53)
[2019-08-29] MEDS: PRINIVIL PO SCH ×2 (07:55→08:07)
[2019-08-29] MEDS: SYMMETREL PO SCH ×2 (07:56→08:07)
[2019-08-29] MEDS: FLOMAX PO SCH ×2 (07:56→08:07)
[2019-08-29] MEDS ORDERED: DIPRIVAN 1% ONE (09:57)
[2019-08-29] MEDS ORDERED: XYLOCAINE-MPF 2% ONE (09:58)
[2019-08-29] MEDS ORDERED: EPHEDRINE ONE (11:29)
[2019-08-29] MEDS: LACTULOSE PO SCH ×2 (12:47→12:48)
[2019-08-29] MEDS: MIRALAX PO SCH (12:49)
[2019-08-29] MEDS ORDERED: KLOR-CON PO ONE (14:45)
[2019-08-29 16:09] VITALS: BP 131/89
--- NOTE | 2019-08-29 22:42 | OPERATIVE NOTE ---
PROCEDURE DATE: 08/29/2019 PREOPERATIVE DIAGNOSES: 1. Gross hematuria. 2. Urinary tract infection. 3. Urinary Retention. POSTOPERATIVE DIAGNOSES: 1. Gross hematuria. 2. Urinary tract infection. 3. Urinary Retention. 4. Bladder stones. PROCEDURE PERFORMED: 1. Cystoscopy with bilateral retrograde pyelograms. 2. Cystolitholapaxy for stone less than 2 cm. SURGEON: Nakul Lopez MD VENEER CLIPPER: None. COMPLICATIONS: None. BLOOD LOSS: Minimal. DRAINS: A 16-Syrian Ramsay catheter. SPECIMENS REMOVED: 1. Bladder stones. 2. Urine for cytology. INDICATIONS FOR PROCEDURE: Mr. Prajapati is a 44-year-old with history of hypertension and multiple sclerosis who presented to the hospital due to nonfunctioning catheter. He was admitted to the hospital over the weekend on 08/25/2019. The patient had recently been seen at [facility] due to priapism, which was drained and had indwelling catheter has been present for over a month. The catheter was removed in the hospital; however, he developed persistent urinary retention and had catheter reinserted. Due to persistent hematuria, I recommended cystoscopy with bilateral retrograde pyelograms. Risks, benefits and alternatives to procedure were discussed with the patient, and the patient elected to proceed. DESCRIPTION OF PROCEDURE: After informed consent was obtained, the patient was brought to the operating room and was placed on the operating table in the supine position. The patient received preoperative antibiotics on the floor and underwent LMA placement. He was positioned to a dorsal lithotomy position, was prepped and draped in usual sterile fashion. A preoperative time-out was then performed with all parties in agreement, including anesthesia, surgical, nursing staff. At which point I inserted a 21-Syrian cystourethroscope through the urethra. The patient had a short penile urethral stricture was able to be transversed with our cystoscope and went into the bladder. The patient's prostate was quite small and widely patent. Once inside the bladder, the entirety of the bladder showed erythematous changes with no obvious papillary lesions, diverticulum or cellules. Both ureteral orifices were visualized effluxing clear yellow urine. The entirety of the bladder was inspected with both the 30 and 70 degree lens and a small amount of bladder stones were seen at the base of the bladder, which were irrigated through our cystourethroscope, obtained and sent for analysis. Once the entirety of the bladder was inspected, open-ended catheter was passed through the scope, flushed of all bubbles, and the left ureteral orifice was cannulized, and Omnipaque was injected up into the collecting system. The patient's ureter was narrow with no significant obstruction or filling defects. The collecting system was delicate and had no defects present as well. Good drainage was seen from the collecting system on postdrainage films. A similar procedure was performed on the right side, which showed a normal collecting system without any filling defects. The patient's bladder was cycled multiple times, left full and a 16-Syrian Ramsay catheter was inserted into the bladder. This was inflated with 10 mL of sterile water and placed to gravity drainage. The patient was then awoken and was taken to recovery in stable condition. The patient is being treated for a urinary tract infection with antibiotics and will be discharged home later today. cc: Nakul Lopez MD MTDD
--- NOTE | 2019-08-30 11:38 | Diag Imaging Result Doc PS360 ---
EXAM: RETROGRADES 2 OR 3 FILMS 08/29/2019 HISTORY: URINARY RETENTION TECHNIQUE: 15 images, 3.3 mGy, 15 seconds fluoroscopy time. COMMENT: There is an inconsistently seen filling defect in the distal right ureter which is probably an air bubble. Otherwise there is no evidence of obstruction or filling defect in both sides drain appropriately. IMPRESSION: No definite abnormality. Electronically signed by Sonu Kwan 08/30/2019 11:35 AM
--- NOTE | 2019-08-30 13:22 | DISCHARGE SUMMARY ---
ADMISSION DATE: 08/25/2019 DISCHARGE DATE: 08/29/2019 DISCHARGE DIAGNOSES: 1. Urinary retention in a patient with an indwelling catheter. 2. Status post drainage from his priapism in [place] a few weeks ago. 3. Hypertension. 4. History of multiple sclerosis. 5. Acute kidney injury, resolved. PROCEDURES PERFORMED: Renal ultrasound dated 08/25/2019. Impression: No visible renal abnormality. No hydronephrosis. CONSULTATIONS: Urology Department, Dr. Nakul Lopez. HOSPITAL COURSE: A 44-year-old male admitted on 08/25/2019 at [facility], and then transferred to [facility]. He basically consulted due to urinary retention and lower abdominal distention and pain for several days. He had a penile surgery at [place] a month ago or so, and they placed a Ramsay catheter at that time. He has had little urine output in his urinary catheter. The ER doctor at [place] spoke with Urology Department, Dr. Lopez, who recommended replacing the Ramsay catheter. This was replaced, and he had immediate return of pardo colored urine. He has leukocyte count of 15,000. Urinalysis showed some bacteria and white blood cells. He has a BUN of 66 and creatinine 6.5, and previously those were normal. He was admitted, and like I said transferred to [facility]. He was physically evaluated by Dr. Lopez. We started giving him treatment including fluids. Urine culture initially showed micrococcus gluteus which is like a contaminant and the next day the blood culture has been basically negative for at least 3 days. The patient went today for a cystoscopic exam with bilateral retrograde pyelograms, and assessment of continued urinary retention and hematuria. It looks like he tolerated well the procedure. I had a conversation with Dr. Lopez who states that this patient can go home today if he is doing fine. He seems to be stable. Vital signs are stable as well as lab work. I will replace the potassium level though. White blood cell count normalized as well as the BUN and creatinine. DISCHARGE EXAMINATION: Vital signs: Temperature 98.1 degrees, pulse 116, respiratory rate 16, blood pressure 146/97, and oxygen saturation 99 on room air. HEENT: Head normocephalic. No trauma. PERRLA. Neck: Supple. No JVD. No masses. Central trachea. Chest: Clear to auscultation. No wheezing. No rales. Abdomen: Soft. Nontender. Nondistended. No hepatosplenomegaly. Extremities: No edema. No clubbing. No cyanosis. Neurological: The patient is awake. He is answering my questions slowly. He is able to move all 4 extremities, but he has some generalized contracture. LABORATORY: WBC 3.5, hemoglobin 11.6, hematocrit 34.9, and platelets 178,000. Sodium 141, potassium 2.9, chloride 105, bicarbonate 24, BUN 5, creatinine 0.6, glucose 94, and calcium 8.1. DISCHARGE MEDICATIONS: 1. Amantadine 100 mg p.o. b.i.d. 2. Klonopin 0.5 mg p.o. t.i.d. 3. Lexapro 1 tablet p.o. daily 10 mg. 4. [place] 10 q.6 hours as needed. 5. Lactulose 30 mL p.o. b.i.d. as needed for constipation. 6. Lisinopril 30 mg p.o. daily. 7. MiraLAX 17 g p.o. b.i.d. 8. Flomax 0.4 mg p.o. daily. FOLLOWUP: Follow up with Dr. Nakul Lopez in 3 weeks. cc: Jorge Polk MD
== END 2019-08-29 17:02 | disposition home or self-care (01) | DRG 699 ==
LOC: P.ED 06:20 → SUATTDRO 08:43 → 4N 08:43
PROVIDERS: ATTEND Internal Medicine